=== PATIENT | male | born 1965 | race Caucasian/White ===

== ENCOUNTER 2022-02-25 08:46 | Day surgery (SDC) | payer OTHER, SELFPAY ==
[2022-02-24 09:04] VITALS: BMI 31.3
--- NOTE | 2022-02-24 09:40 | HO.ANESPROP2 ---
Documented by User: Nanci Garcia NP 02/24/22 09:41 HPI - Anesthesia Eval Consult details Narrative: 56yo M for Right Eye Muscle Recession/Resection,lateral and medial rectus resection PCP cleared [facility] Past Medical History Medical History (Updated 02/20/22 @ 10:38 by Irene Duvall RN) Acute pain of right shoulder Arthrosis of knee Blindness of right eye Chronic pain of both knees Essential hypertension Hemorrhoids Lateral epicondylitis of both elbows Osteoarthritis of spine Pain, lower extremity PTSD (post-traumatic stress disorder) Social History Social History Patient Tobacco Use Status: Never used Tobacco Second Hand Smoke Exposure: No Use of substances other than those prescribed or required for medical reasons: No Are you DNR?: No Advance Directives: No Advance Directives Information Provided: Yes Advance Directives on File: No Meds Allergies Allergy/AdvReac Type Severity Reaction Status Date / Time No Known Allergies Allergy Verified 12/30/21 09:16 Home Medications Medication Instructions Recorded Confirmed Last Taken Type acetaminophen 500 mg tablet 1,000 mg PO TID PRN 12/30/21 02/20/22 Unknown History amitriptyline 50 mg tablet 50 mg PO BEDTIME 12/30/21 02/20/22 Unknown History atorvastatin 20 mg tablet 20 mg PO BEDTIME 12/30/21 02/20/22 Unknown History baclofen 10 mg tablet 10 mg 12/30/21 Unknown History bupropion HCl 100 mg tablet 100 mg PO BID 12/30/21 02/20/22 Unknown History clotrimazole-betamethasone 1 1 appl TOPICAL BID 12/30/21 02/20/22 Unknown History %-0.05 % topical cream diclofenac sodium 1 % topical gel 2 g TOPICAL QID 12/30/21 02/20/22 Unknown History fluoride (sodium) 1.1 % dental 1 appl DENTAL DAILY 12/30/21 02/20/22 Unknown History cream hydrocortisone 1 % topical cream 1 appl TOPICAL BID 12/30/21 02/20/22 Unknown History lisinopril 20 1 tab PO DAILY 12/30/21 02/20/22 Unknown History mg-hydrochlorothiazide 25 mg tablet omeprazole 40 mg capsule,delayed 40 mg PO DAILY 12/30/21 02/20/22 Unknown History release Exam Exam Date and Time: February 24, 2022 0940 Height,Weight and Vital Signs: Height 5 ft 9 in Weight 96.2 kg Assessment and Plan Assessment Anesthesia Assessment: Chart Reviewed Documented by User: Oliver Blanca MD 02/25/22 10:52 [facility] Past Medical History Medical History (Updated 02/20/22 @ 10:38 by Irene Duvall RN) Acute pain of right shoulder Arthrosis of knee Blindness of right eye Chronic pain of both knees Essential hypertension Hemorrhoids Lateral epicondylitis of both elbows Osteoarthritis of spine Pain, lower extremity PTSD (post-traumatic stress disorder) Family History Family history of problems with anesthesia: No Surgical History History of Problems with Anesthesia: No Social History Social History Patient Tobacco Use Status: Never used Tobacco Second Hand Smoke Exposure: No Use of substances other than those prescribed or required for medical reasons: No Are you DNR?: No Advance Directives: No Advance Directives Information Provided: Yes Advance Directives on File: No Meds Allergies Allergy/AdvReac Type Severity Reaction Status Date / Time No Known Allergies Allergy Verified 12/30/21 09:16 Home Medications Medication Instructions Recorded Confirmed Last Taken Type acetaminophen 500 mg tablet 1,000 mg PO TID PRN 12/30/21 02/20/22 Unknown History amitriptyline 50 mg tablet 50 mg PO BEDTIME 12/30/21 02/20/22 Unknown History atorvastatin 20 mg tablet 20 mg PO BEDTIME 12/30/21 02/20/22 Unknown History baclofen 10 mg tablet 10 mg 12/30/21 Unknown History bupropion HCl 100 mg tablet 100 mg PO BID 12/30/21 02/20/22 Unknown History clotrimazole-betamethasone 1 1 appl TOPICAL BID 12/30/21 02/20/22 Unknown History %-0.05 % topical cream diclofenac sodium 1 % topical gel 2 g TOPICAL QID 12/30/21 02/20/22 Unknown History fluoride (sodium) 1.1 % dental 1 appl DENTAL DAILY 12/30/21 02/20/22 Unknown History cream hydrocortisone 1 % topical cream 1 appl TOPICAL BID 12/30/21 02/20/22 Unknown History lisinopril 20 1 tab PO DAILY 12/30/21 02/20/22 Unknown History mg-hydrochlorothiazide 25 mg tablet omeprazole 40 mg capsule,delayed 40 mg PO DAILY 12/30/21 02/20/22 Unknown History release Exam Airway Mallampati Class: III TM Dist: >3cm Neck ROM: Full Loose/Missing/Broken Teeth: No Heart: [id number] Lungs: cta b/l Assessment and Plan Assessment Anesthesia Assessment: Anesthesia Plan Discussed Final Anesthetic Review Family History of Problems with Anesthesia: No History of Problems with Anesthesia: No NPO: Yes ASA Class: II Final Preanesthetic Review: No Changes in Pt Med Stat, Meds/Allgs Chart Reviewed, Consent Obtained/Reviewed and Anes Risks/Benef Reviewed Patient Risk: Intermediate Procedure Risk: Low Assessment/Block/Sedation in SS: Assess/Block/Sedation-SS Anesthetic Plan Anesthetic Plan: GA and Agree w/ Assess. and Plan Disposition: Standard PACU
[2022-02-25] VITALS (10 sets, daily range): BP systolic 97–157; BP diastolic 55–79; PULSE 61–77; RESP 13–18; TEMP 36.3–36.4; O2SAT 95–100
[2022-02-25] MEDS: Lactated Ringers 1,000 ML 100 ML IVCONT (10:35)
[2022-02-25] MEDS: oxyCODONE HCl Immed Release 5 MG TABLET 10 MG PO (12:14)
[2022-02-25] MEDS: Acetaminophen 325 MG TABLET 650 MG PO (12:14)
[2022-02-25] MEDS: fentaNYL citrate/PF 100 MCG/2 ML VIAL 25 MCG IVPUSH (12:27)
--- NOTE | 2022-02-25 15:06 | P.OPHTHAL_ITS ---
Ophthalmology Operative Note Date of Service: 02/25/22 Narrative: Diagnosis right exotropia procedure 1. Recession of right lateral rectus muscles 9 mm 2. Resection of right medial rectus muscle [address] Gonzales anesthesia general complications none. The patient was brought to the operative room placed under general anesthesia. The patient's right eye was prepped and draped in the usual sterile ophthalmic fashion. A lid speculum was placed in the eye and a peritomy was created around the lateral rectus muscle. The muscle was hooked and secured with a double-armed Vicryl suture. It was then disinserted from the globe and reattached to a position 9 mm behind the original insertion. A peritomy was then created around the medial rectus muscle. The overlying fascial attachments were dissected free and the muscle was grasped with a [place] muscle clamp. A 7 mm resection was marked off with cautery the resection point was secured with a double-armed Vicryl suture. The distal muscle was resected and the resection point was drawn forward to the original insertion using the Vicryl suture. Both conjunctiva all insertions were then closed with interrupted Vicryl sutures. The patient was then awoken from general anesthesia and discharged to postoperative recovery in good condition.
== END 2022-02-25 13:27 | disposition home or self-care (01) ==
PROVIDERS: PCP Nurse Practitioner Family; Visit Provider Ophthalmology
PROC: (CPT 67312; principal; 2022-02-25 10:30)
DX: H50.111 Monocular exotropia, right eye (principal); H54.10 Blindness, one eye, low vision other eye, unspecified eyes; I10 Essential (primary) hypertension; F43.10 Post-traumatic stress disorder, unspecified; G89.29 Other chronic pain; M25.562 Pain in left knee; M25.561 Pain in right knee; Z79.899 Other long term (current) drug therapy
CPT/HCPCS: 67312; J1100; J1885; J2250; J2405; J3010